=== PATIENT | female | born 1995 | race African-American/Black ===

== ENCOUNTER 2017-03-15 01:49 | Emergency (ER) | payer MEDICAID ==
[~2017-03-15] VITALS: Ht 149.9 cm; Wt 55.0 kg
[2017-03-15 03:08] VITALS: BP 137/80
== END 2017-03-15 04:35 | disposition home or self-care (01) ==
LOC: ER 01:59
DX: L30.9 Dermatitis, unspecified (principal); K62.89 Other specified diseases of anus and rectum
CPT/HCPCS: 99283

== ENCOUNTER 2017-03-23 00:20 | Emergency (ER) | payer MEDICAID ==
[~2017-03-23] VITALS: Ht 149.9 cm; Wt 54.5 kg
[2017-03-23 05:00] VITALS: BP 128/68
[2017-03-23 05:43] LABS: CLARITY URINE CLEAR (CLEAR); COLOR URINE YELLOW (YELLOW); GLUCOSE URINE NEGATIVE (NEGATIVE); KETONES URINE NEGATIVE (NEGATIVE); LEUKOCYTE ESTERASE URINE 1+ (NEGATIVE); NITRITE URINE NEGATIVE (NEGATIVE); OCCULT BLOOD URINE 1+ (NEGATIVE); PH URINE 6.5 (4.5-8.0); PROTEIN URINE NEGATIVE (NEGATIVE); UROBILINOGEN URINE 0.2 E.U./dL (0.2-1.0)
== END 2017-03-23 05:00 | disposition home or self-care (01) ==
LOC: ER 00:20
DX: R00.0 Tachycardia, unspecified (principal); R11.2 Nausea with vomiting, unspecified; F12.10 Cannabis abuse, uncomplicated
CPT/HCPCS: 81001; 81025; 87086; 93005; 99285

== ENCOUNTER 2017-03-23 08:13 | Emergency (ER) | payer MEDICAID ==
[~2017-03-23] VITALS: Ht 149.9 cm; Wt 55.0 kg
[2017-03-23] MEDS ORDERED: KETOROLAC 30MG/ML VIAL IV STA (08:38)
[2017-03-23] MEDS ORDERED: ONDANSETRON HCL 4MG/2ML VIAL IV STA (08:38)
[2017-03-23] MEDS ORDERED: FAMOTIDINE 20MG/2ML VIAL IV ONE (08:45)
[2017-03-23] MEDS ORDERED: MAGNESIUM/ALUMINUM HYDROXIDE/SIMETHICONE 30ML UDC PO ONE (08:45)
[2017-03-23] MEDS ORDERED: DICYCLOMINE 10 MG/5 ML ORAL SYR PO ONE (08:45)
[2017-03-23] MEDS ORDERED: VISCOUS LIDOCAINE 2% 15 ML UDC PO ONE (08:45)
[2017-03-23 08:54] LABS: BASOPHILS % 0.4 % (0.0-2.0); EOSINOPHILS % 0.2 % (0.0-5.0); HEMATOCRIT. 26.2 % (36.0-48.0); HEMOGLOBIN. 8.3 g/dL (12.0-16.0); LYMPHOCYTES % 15.7 % (20.0-50.0); MEAN CORPUSCULAR HEMOGLOBIN 19.8 pg (28.0-32.0); MEAN CORPUSCULAR VOLUME 62.7 fL (81.0-99.0); MEAN PLATELET VOLUME 7.5 fl (7.4-10.4); MONOCYTES % 5.5 % (2.0-8.0); NEUTROPHILS % 78.2 % (40.0-76.0); PLATELET 415 x1000/uL (130-400); RED BLOOD CELL COUNT 4.18 mill/uL (4.2-5.4); RED CELL DISTRIBUTION WIDTH 19.1 % (11.6-14.6)
[2017-03-23 09:05] LABS: D-DIMER 0.59 mg/L FEU (<0.50)
[2017-03-23 09:12] LABS: CARBON DIOXIDE 26 mEq/L (21-32); CHLORIDE 102 mEq/L (98-107); HCG SCREEN NEGATIVE
[2017-03-23 09:24] LABS: PLATELET ESTIMATE SLIGHTLY INCREASED
[2017-03-23] MEDS ORDERED: IOHEXOL-350 100 ML BOTTLE ONE (10:27)
[2017-03-23] MEDS ORDERED: SODIUM CHLORIDE 0.9% 1,000 ML IV ONE (11:09)
[2017-03-23] MEDS ORDERED: LORAZEPAM 0.5MG TABLET PO ONE (11:15)
[2017-03-23 11:37] LABS: T4 FREE 1.09 ng/dL (0.76-1.46)
[2017-03-23 12:32] VITALS: BP 129/80
== END 2017-03-23 12:38 | disposition home or self-care (01) ==
LOC: ER 08:22
DX: R07.9 Chest pain, unspecified (principal); F12.10 Cannabis abuse, uncomplicated; R79.9 Abnormal finding of blood chemistry, unspecified; R06.02 Shortness of breath; D64.9 Anemia, unspecified
CPT/HCPCS: 36415; 71010; 71275; 80053; 83880; 84439; 84443; 84703; 85025; 85379; 85610; 93005; 96361; 96374; 96375; 99285; J1885; J2405; J3490; J7030; Q9967; Z7610

== ENCOUNTER 2017-08-22 06:34 | Emergency (ER) | payer MEDICAID ==
[~2017-08-22] VITALS: Ht 152.4 cm; Wt 45.0 kg
[2017-08-22] MEDS ORDERED: LORAZEPAM 1MG TABLET PO ONE (07:15)
[2017-08-22] MEDS ORDERED: ONDANSETRON 4MG ODT PO ONE (07:15)
[2017-08-22 09:06] VITALS: BP 114/71
== END 2017-08-22 09:08 | disposition home or self-care (01) ==
LOC: ER 06:34
DX: F41.9 Anxiety disorder, unspecified (principal)
CPT/HCPCS: 99284; Q0162

== ENCOUNTER 2024-07-07 06:51 | Emergency (ER) | payer OTHER ==
[~2024-07-07] VITALS: Ht 162.6 cm; Wt 68.0 kg
[~2024-07-07 06:51] MED LIST: METO25TA6 PO; QUET300T2 MT; VENL75CA56 PO
[2024-07-07 06:59] VITALS: O2SAT 99
[2024-07-07 07:59] LABS: CHLORIDE 103 mEq/L (98-107); POTASSIUM 3.6 mEq/L (3.5-5.1); SODIUM 142 mEq/L (136-145)
[2024-07-07 08:00] LABS: CARBON DIOXIDE 28 mEq/L (21-32)
[2024-07-07 08:01] LABS: CALCIUM 9.6 mg/dL (8.7-10.4)
[2024-07-07 08:05] LABS: CREATININE 1.1 mg/dL (0.6-1.0); GLUCOSE 110 mg/dL (70-105); UREA NITROGEN BLOOD 6 mg/dL (9-23)
[2024-07-07 08:08] LABS: BASOPHILS % 0.6 % (0.0-2.0); EOSINOPHILS % 0.7 % (0.0-5.0); HEMATOCRIT. 31.6 % (36.0-48.0); HEMOGLOBIN. 10.2 g/dL (12.0-16.0); LYMPHOCYTES % 18.9 % (20.0-50.0); MEAN CORPUSCULAR HEMOGLOBIN 21.8 pg (28.0-32.0); MEAN CORPUSCULAR HGB CONC 32.4 g/dL (31.0-37.0); MEAN CORPUSCULAR VOLUME 67.4 fL (81.0-99.0); MONOCYTES % 4.3 % (2.0-8.0); NEUTROPHILS % 75.5 % (40.0-76.0); PLATELET 496 x1000/uL (130-400); RED BLOOD CELL COUNT 4.69 mill/uL (4.2-5.4); RED CELL DISTRIBUTION WIDTH 19.8 % (11.6-14.6); WHITE BLOOD COUNT 8.9 x1000/uL (4.5-11.0)
[2024-07-07 08:31] LABS: ADD RBC MORPHOLOGY YES; DIFFERENTIAL COMMENT 1
[2024-07-07 08:37] LABS: TROPONIN I HIGH SENSITIVITY < 4 ng/L (3.0-34)
[2024-07-07 10:03] LABS: ANISOCYTOSIS 2+; MICROCYTOSIS 3+; PLATELET ESTIMATE INCREASED
[2024-07-07 10:10] LABS: TROPONIN I HIGH SENSITIVITY < 4 ng/L (3.0-34)
[2024-07-07 11:15] VITALS: BP 145/78; PULSE 99; RESP 18; TEMP 36.8; O2SAT 99
== END 2024-07-07 11:40 | disposition home or self-care (01) ==
LOC: ER 07:28
DX: R07.9 Chest pain, unspecified (principal); F32.A Depression, unspecified; F41.9 Anxiety disorder, unspecified; F43.10 Post-traumatic stress disorder, unspecified; I10 Essential (primary) hypertension; Z79.899 Other long term (current) drug therapy
CPT/HCPCS: 36415; 71045; 80048; 83880; 84484; 85025; 93005; 99285